=== PATIENT | male | born 1990 | race Caucasian/White ===

== ENCOUNTER 2017-02-20 09:21 | Emergency (ER) | payer OTHER ==
--- NOTE | 2017-02-20 09:34 | ED Physician Chart ---
Chief Complaint/HPI - Patient Information Date Seen:: 02/20/17 Time Seen:: 09:33 Chief Complaint:: TENDER SWELLING IN SUPRAUBIC AREA X 2 DAYS History of Present Illness:: This 26-year-old male noticed a mild swelling with tenderness in the suprapubic region 2 nights ago. He had been lifting furniture and he thought that he might have a hernia. He also thought that he might have an insect bite. He rates the discomfort as a 1/10 in severity. It is tender to pressure. He has taken no medications for it and there are no relieving factors. He has no associated nausea, vomiting or diarrhea. He has no testicular tenderness or urethral discharge. No dysuria or hematuria. Historian:: Patient Review of Systems - Review of Systems General/Constitutional: No fever, No chills, No weakness, No diaphoresis, No edema Skin: Skin lesions, Rash, Other (the skin lesion is in the suprapubic region. There is mild induration of the skin with no fluctuance.) Head: No headache, No light-headedness Eyes: No loss of vision, No diplopia ENT: No earache, No sore throat, No tinnitus Neck: No neck pain, No stiffness, No mass noted Cardio Vascular: No chest pain, No palpitations, No edema Pulmonary: No SOB, No cough, Sputum, Other (patient states he has occasional wheezing.) GI: No nausea, No vomiting, No diarrhea, Pain, No constipation, No hematemesis G/U: No dysuria, No frequency, No hematuria Musculoskeletal: No bone or joint pain, No back pain, No muscle pain Psychiatric: No prior psych history, No depression Hematopoietic: No bruising, No lymphadenopathy Allergic/Immuno: No urticaria, No angioedema Neurological: No syncope, No focal symptoms, No weakness, No paresthesia, No headache, No seizure, No confusion, No vertigo Past Medical History - Past Medical History Past Medical History: No significant medical hx Family History: Diabetes Melitus Social History: Non Smoker, No Drug Use, , Other (rarely drinks alcohol.) Employment:: integrated marketing managerproduct line manager Exam - Physical Examination General/Constitutional: Awake, Well-developed, well-nourished, Alert, No distress, GCS 15, Non-toxic appearing, Ambulatory Head: Atraumatic Eyes: Lids, conjuctiva normal, PERRL, EOMI Other Skin comments:: Patient has a mild skin rash in the suprapubic region consistent with folliculitis. There is no erythema and there is mild scaling. Minimally tender to palpation and without any fluctuance. ENMT: External ears, nose nl, Lips, teeth, gums nl, Oropharynx nl, Tonsils nl Neck: Nontender, No JVD, No nuchal rigidity, No mass Respiratory: Nl effort/Exclusion, Clear to Auscultation, No Wheeze/Rhonchi/Rales Cardio Vascular: RRR, No murmur, gallop, rubs, NL S1 S2 Other Cardio Vascular comments:: Adequate pulses in all 4 extremities. GI: No tenderness/rebounding/guarding, No organomegaly, No hernia, Normal BS's, Nondistended, No mass/bruits, No McBurney tenderness Other GI comments:: Rectal exam deferred at my discretion. : No CVA tenderness, NL external genitalia, No discharge Other comments:: No testicular tenderness or masses. No inguinal masses. Extremities: No tenderness or effusion, Full ROM, normal strength in all extremities, No edema Neuro/Psych: Alert/oriented, Normal sensory exam, Normal motor strength, Judgement/insight normal, Mood normal, Normal gait, No focal deficits Misc: Normal back, No paraspinal tenderness Labs/Radiology/EKG Results - Lab Results Results: No laboratory or radiographic studies were indicated. Assessment - Assessment General Assessment: CASE SUMMARY: This 26-year-old male presents with tenderness in the suprapubic region that is been present for the past 2 days. He noted that there was some induration in the region. On physical examination the patient had no hernias or testicular tenderness. There was a mild rash consistent with folliculitis about the size of a quarter in the suprapubic region. There was no associated fluctuance and it was minimally tender. Presumptive diagnosis of folliculitis made and the patient was given a prescription for cephalexin 500 mg to be taken 4 times a day for one week. He is advised to return to the emergency department if there is any significant increase in pain or discomfort. He is further advised to follow-up with his health resident care associate at the end of this coming week if his symptoms had not resolved. MDM DDX FOR TENDERNESS IN SUPRAPUBIC AREA: NOT inguinal hernia based on physical exam.. NOT testicular torsion based on physical exam. NOT abdominal wall abscess based on physical examination. ED Septic Shock - . Is Septic Shock (SBP<90, OR Lactate>4 mmol\L) present?: No Reassessment (Disposition) - Reassessment Reassessment Condition:: Unchanged - Diagnosis Diagnosis:: MILD FOLLICULITIS in the suprapubic region. - Aftercare/Follow up Instructions Notes:: Patient was counseled regarding my physical examination and diagnosis of folliculitis. He was given a prescription for cephalexin 500 mg to be taken 4 times a day for 7 days. He was advised to return to the emergency department if there is any significant worsening of his symptoms and to follow up with his primary care physician at the end of this coming week if his symptoms had not resolved. He is also advised to use local heat 4-5 times per day over the area of the inflammation. ED Discharge Plan - Patient Disposition Instructions: Folliculitis
== END 2017-02-20 10:01 | disposition home or self-care (01) ==
LOC: ER 09:21
DX: L73.9 Follicular disorder, unspecified (principal)
CPT/HCPCS: Z7502